=== PATIENT | male | born 1985 | race Caucasian/White ===

== ENCOUNTER 2017-07-13 23:14 | Emergency (ER) | payer BC, SELFPAY ==
[2017-07-14] MEDS ORDERED: NA CHLORIDE 0.9% 1,000 ML ONE (00:45)
[2017-07-14 00:52] LABS: Absolute Lymphocytes (CBC) 1.6 K/uL (0.7-4.9); Absolute Monocytes 1.3 K/uL (0.1-1.3); Absolute Neutrophil 15.3 K/uL (1.8-8.0); Basophils % 0.2 % (0-1.3); Eosinophils % 0.4 % (0-4.4); Hematocrit 51.1 % (39.6-49.0); Lymphocytes % 8.9 % (15.3-44.8); MCH 31.6 pg (27.0-35.0); MCV 91.5 fL (80-100); MPV 8.7 fL (7.6-11.3); RBC Red Blood Cell Count 5.58 M/uL (4.33-5.43)
[2017-07-14] MEDS ORDERED: LIDOCAINE 1% MPF 5 ML VIAL ONE (00:53)
[2017-07-14] MEDS ORDERED: LIDOCAINE 1% 20 ML MDV ONE (00:54)
[2017-07-14 01:03] LABS: Potassium 3.3 mEq/L (3.6-5.0)
[2017-07-14] MEDS ORDERED: PIPER/TAZO/NS 3.375gm 3.375 GM/100 ML BAG ONE (01:15)
[2017-07-14] MEDS ORDERED: POTASSIUM CL SA 10 MEQ TAB PO ONE (01:15)
--- NOTE | 2017-07-14 01:20 | ER ---
Nurse's Notes [facility] Name: Shaggy William Age: 32 yrs Sex: Male : 1985 Arrival Date: 07/13/2017 Time: 23:19 Bed 25 Private MD: Marielle Mcclellan Diagnosis: Agscess/ Cellulitis right buttock Presentation: 07/13 23:31 Presenting complaint: Patient states: that at 1200 he gave himself a testosterone shot fc to right buttock and now it is warm and swollen. Is concerned being he is leaving for a trip today.. Transition of care: patient was not received from another setting of care. Onset of symptoms was July 13, 2017 at 12:00. Initial Sepsis Screen: Does the patient meet any 2 criteria? No. Patient's initial sepsis screen is negative. Does the patient have a suspected source of infection? No. Patient's initial sepsis screen is negative. Care prior to arrival: None. 23:31 Method Of Arrival: Ambulatory fc 23:31 Acuity: GONZALEZ 4 fc Triage Assessment: 07/14 00:00 General: Appears in no apparent distress. comfortable, slender, well groomed, well kr2 developed, well nourished, Behavior is calm, cooperative. Pain: Complains of pain in left gluteus aurelia Pain currently is 5 out of 10 on a pain scale. Quality of pain is described as tender, Pain began last night Is continuous, Alleviated by rest, repositioning, Aggravated by touch, pressure. Historical: - Allergies: 07/13 23:38 No Known Allergies; fc - Home Meds: 23:38 trazalam 0.5 mg nightly [Active]; testosterone cypionate 100 mg/mL intramuscular oil fc 2.2 mL as needed [Active]; - PMHx: 23:38 low testosterone; fc - PSHx: 23:38 None; fc - Immunization history:: Last tetanus immunization: unknown. - Social history:: Smoking status: Patient/guardian denies using tobacco, Patient uses alcohol, occasionally. Patient/guardian denies using street drugs. Screenin/06 00:49 Abuse screen: Denies threats or abuse. Denies injuries from another. Nutritional kr2 screening: No deficits noted. Tuberculosis screening: No symptoms or risk factors identified. Fall Risk None identified. Assessment: 00:00 General: Appears in no apparent distress. uncomfortable, well groomed, well developed, kr2 well nourished, Behavior is calm, cooperative. Pain: Complains of pain in right gluteus aurelia Pain does not radiate. Pain currently is 5 out of 10 on a pain scale. Quality of pain is described as tender. Neuro: Level of Consciousness is awake, alert, obeys commands, Oriented to person, place, time, situation. Cardiovascular: Capillary refill < 3 seconds in bilateral fingers Patient's skin is warm and dry. Respiratory: Airway is patent Respiratory effort is even, unlabored, Respiratory pattern is regular, symmetrical. GI: Abdomen is flat, non-distended. : No signs and/or symptoms were reported regarding the genitourinary system. EENT: Oral mucosa is moist. Derm: Skin is intact, is healthy with good turgor, Skin is pink, warm \T\ dry. Abscess located on right gluteus has no drainage, is red, is raised. Musculoskeletal: Circulation, motion, and sensation intact. Vital Signs: 07/13 23:38 BP 159 / 90; Pulse 92; Resp 18; Temp 99.6(O); Pulse Ox 97% on R/A; Weight 81.65 kg (R); fc Height 5 ft. 11 in. (180.34 cm) (R); Pain 2/10; 07/14 01:21 BP 114 / 52; Pulse 81; Resp 17; Pulse Ox 97% on R/A; kr2 07/13 23:38 Body Mass Index 25.10 (81.65 kg, 180.34 cm) ED Course: 07/13 23:19 Patient arrived in ED. al2 23:19 Marielle Mcclellan MD is Private Physician. al2 23:33 Triage completed. fc 23:39 Arm band placed on Patient placed in an exam room, on a stretcher. fc 23:44 Mónica Anglin RN is Primary Nurse. kr2 23:45 Patient has correct armband on for positive identification. Placed in gown. Bed in low kr2 position. Call light in reach. Side rails up X 1. Pulse ox on. NIBP on. Door closed. Head of bed elevated. 07/14 00:21 Michael Wu MD is Attending Physician. pkl 00:35 Inserted saline lock: 20 gauge in right antecubital area, using aseptic technique. kr2 Blood collected. 01:18 Tomas Norton MD is Referral Physician. pkl 01:20 Assist provider with I \T\ D: of an abscess on right buttock Set up I\T\D tray. Performed kr 2 by Michael Wu MD Culture sent to lab. Wound packed. iodoform gauze, Dressing with 4X4s, tape Patient tolerated well. 02:09 IV discontinued, intact, bleeding controlled, No redness/swelling at site. Pressure ak1 dressing applied. Administered Medications: 00:49 Drug: NS 0.9% 1000 ml Route: IV; Rate: 1000 ml; Site: left antecubital; kr2 01:24 Drug: Zosyn 3.375 grams Route: IVPB; Infused Over: 60 mins; Site: right antecubital; ak1 01:25 Drug: K-Dur 40 mEq Route: PO; ak1 01:25 Drug: Lidocaine (1 %) 5 mg {Note: placed at bedside for ERP to use.} Route: ak1 Infiltration; Outcome: 01:19 Discharge ordered by . pkl 02:09 Discharged to home ambulatory, with family. ak1 02:09 Condition: good 02:09 Discharge instructions given to patient, Instructed on discharge instructions, follow up and referral plans. no drinking with medication, no driving heavy equipment, medication usage, wound care, Demonstrated understanding of instructions, follow-up care, medications, wound care, Prescriptions given X 3. 02:09 Patient left the ED. ak1 Signatures: Michael Wu MD MD pkl Chretien, Felicia, RN RN fc Krenek, Amber, RN RN ak1 Mónica Anglin RN RN kr2 Mima Sue2 Corrections: (The following items were deleted from the chart) 01:16 00:50 Pain: Complains of pain in left gluteus aurelia Pain currently is 5 out of 10 on kr2 a pain scale. Quality of pain is described as tender, Pain began last night Is continuous, Alleviated by rest, repositioning, Aggravated by touch, pressure kr2 01:16 00:50 General: Appears in no apparent distress. comfortable, slender, well groomed, kr2 well developed, well nourished, kr2 01:16 00:50 Pain: Complains of pain in left gluteus aurelia Pain currently is 5 out of 10 on kr2 a pain scale. Quality of pain is described as tender, Pain began last night Is continuous, Alleviated by rest, repositioning, Aggravated by touch, pressure kr2
--- NOTE | 2017-07-14 01:20 | EDPHYS ---
Physician Documentation [facility] Name: Shaggy William Age: 32 yrs Sex: Male : 1985 Arrival Date: 07/13/2017 Time: 23:19 Bed 25 Private MD: Marielle Mcclellan ED Physician Michael Wu HPI: 07/14 01:09 This 32 yrs old Male presents to ER via Ambulatory with complaints of pkl INFECTION ON BUTTOCK. 01:09 the patient presents with a swollen area of the . Description: tense, warm, indurated. pkl Onset: The symptoms/episode began/occurred today. Patient said he injected testosterone shot to his right buttock earlier this morning. Historical: - Allergies: 07/13 23:38 No Known Allergies; fc - Home Meds: 23:38 trazalam 0.5 mg nightly [Active]; testosterone cypionate 100 mg/mL intramuscular oil fc 2.2 mL as needed [Active]; - PMHx: 23:38 low testosterone; fc - PSHx: 23:38 None; fc - Immunization history:: Last tetanus immunization: unknown. - Social history:: Smoking status: Patient/guardian denies using tobacco, Patient uses alcohol, occasionally. Patient/guardian denies using street drugs. ROS: 07/14 01:09 Eyes: Negative for injury, pain, redness, and discharge, ENT: Negative for injury, pkl pain, and discharge, Neck: Negative for injury, pain, and swelling, Cardiovascular: Negative for chest pain, palpitations, and edema, Respiratory: Negative for shortness of breath, cough, wheezing, and pleuritic chest pain, Abdomen/GI: Negative for abdominal pain, nausea, vomiting, diarrhea, and constipation, Back: Negative for injury and pain, : Negative for injury, bleeding, discharge, and swelling, MS/Extremity: Negative for injury and deformity, Neuro: Negative for headache, weakness, numbness, tingling, and seizure. Skin: Positive for abscess, cellulitis, of the right buttock. Exam: 01:09 Head/Face: Normocephalic, atraumatic. Eyes: Pupils equal round and reactive to light, pkl extra-ocular motions intact. Lids and lashes normal. Conjunctiva and sclera are non-icteric and not injected. Cornea within normal limits. Periorbital areas with no swelling, redness, or edema. ENT: Nares patent. No nasal discharge, no septal abnormalities noted. Tympanic membranes are normal and external auditory canals are clear. Oropharynx with no redness, swelling, or masses, exudates, or evidence of obstruction, uvula midline. Mucous membranes moist. Neck: Trachea midline, no thyromegaly or masses palpated, and no cervical lymphadenopathy. Supple, full range of motion without nuchal rigidity, or vertebral point tenderness. No Meningismus. Chest/axilla: Normal chest wall appearance and motion. Nontender with no deformity. No lesions are appreciated. Cardiovascular: Regular rate and rhythm with a normal S1 and S2. No gallops, murmurs, or rubs. Normal PMI, no JVD. No pulse deficits. Respiratory: Lungs have equal breath sounds bilaterally, clear to auscultation and percussion. No rales, rhonchi or wheezes noted. No increased work of breathing, no retractions or nasal flaring. Abdomen/GI: Soft, non-tender, with normal bowel sounds. No distension or tympany. No guarding or rebound. No evidence of tenderness throughout. Back: No spinal tenderness. No costovertebral tenderness. Full range of motion. MS/ Extremity: Pulses equal, no cyanosis. Neurovascular intact. Full, normal range of motion. Neuro: Awake and alert, GCS 15, oriented to person, place, time, and situation. Cranial nerves II-XII grossly intact. Motor strength 5/5 in all extremities. Sensory grossly intact. Cerebellar exam normal. Normal gait. 01:09 Skin: abscess, that is moderate sized, approximately 4 cm(s), cellulitis, that is moderate, on the right buttock. Vital Signs: 07/13 23:38 BP 159 / 90; Pulse 92; Resp 18; Temp 99.6(O); Pulse Ox 97% on R/A; Weight 81.65 kg (R); Height 5 ft. 11 in. (180.34 cm) (R); Pain 04/20; 07/14 01:21 BP 114 / 52; Pulse 81; Resp 17; Pulse Ox 97% on R/A; kr2 07/13 23:38 Body Mass Index 25.10 (81.65 kg, 180.34 cm) Procedures: 01:09 I \T\ D: Incision and drainage was performed for an abscess of the right Prepped with pkl Betadine, Anesthetized with 3 ml's 1% Lidocaine. Incised with #11 blade. Drained moderate amount purulent fluid. bloody fluid. Packed with iodoform gauze, Dressing: sterile 4x4 gauze, the patient tolerated the procedure well. MDM: 00:21 Patient medically screened. pkl 01:09 Data reviewed: vital signs, nurses notes, lab test result(s). pkl 07/14 00:29 Order name: CBC with Diff; Complete Time: 05:22 pkl 07/14 00:29 Order name: Chem 7; Complete Time: 01:07 pkl 07/14 00:29 Order name: Sed Rate; Complete Time: : pkl 07/14 01:22 Order name: Wound Culture kr2 Administered Medications: 00:49 Drug: NS 0.9% 1000 ml Route: IV; Rate: 1000 ml; Site: left antecubital; kr2 01:24 Drug: Zosyn 3.375 grams Route: IVPB; Infused Over: 60 mins; Site: right antecubital; ak1 01:25 Drug: K-Dur 40 mEq Route: PO; ak1 01:25 Drug: Lidocaine (1 %) 5 mg {Note: placed at bedside for ERP to use.} Route: ak1 Infiltration; Disposition: 07/14/17 01:19 Discharged to Home. Impression: Agscess/ Cellulitis right buttock. - Condition is Stable. - Prescriptions for Ultram 50 mg Oral Tablet - take 1 tablet by ORAL route every 8 hours As needed; 20 tablet. Cipro 500 mg Oral Tablet - take 1 tablet by ORAL route every 12 hours for 7 days; 14 tablet. Bactrim DS 800- 160 mg Oral Tablet - take 1 tablet by ORAL route every 12 hours for 7 days; 14 tablet. - Work release form, Medication Reconciliation Form, Thank You Letter, Antibiotic Education, Prescription Opioid Use form. - Follow up: Tomas Norton MD; When: 2 - 3 days; Reason: Re-evaluation by your physician. - Problem is new. - Symptoms have improved. Signatures: Dispatcher [employer] EDMS Michael Wu MD MD pkl Chretien, Felicia, RN RN fc Krenek, Amber, RN RN ak1 Mónica Anglin RN RN kr2 Corrections: (The following items were deleted from the chart) 02:09 01:19 07/14/2017 01:19 Discharged to Home. Impression: Agscess/ Cellulitis right ak1 buttock. Condition is Stable. Forms are Medication Reconciliation Form, Thank You Letter, Antibiotic Education, Prescription Opioid Use. Follow up: Tomas Norton; When: 2 - 3 days; Reason: Re-evaluation by your physician. Problem is new. Symptoms have improved. pkl
== END 2017-07-14 02:09 | disposition home or self-care (01) ==
LOC: ER 23:14
DX: L03.317 Cellulitis of buttock (principal)
CPT/HCPCS: 36415; 80048; 85025; 85652; 87070; 87205; 96374; 99284; J2543; J7030